=== PATIENT | male | born 1965 | race Caucasian/White ===

== ENCOUNTER 2024-12-19 12:46 | Outpatient (AMB) | payer OTHER, SELFPAY ==
--- NOTE | 2024-12-19 12:51 | MHC.PC.OV ---
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 He is on atorvastatin 20 mg daily. Requests dermatology referral for skin check. Prior PCP? - [facility] Last office visit/CPE/labs - 10/2023 Acute issue(s) - None Past Medical History - Myopia, bilat cataract, dyslipidemia, urethral stricture, chronic low back pain with ruptured L5-S1 discs, BLE neuropathy, chronic right shoulder pain, chronic bilateral knee pain, (right worst than left) Surgical History - Appendectomy, urethral stricture surgery x 4, bilat cataract surgery Family History - Dad: Carotid artery malignant tumor, alcohol abuse Social History - Nonsmoker. Does not vape. Drinks 1 hard cider once monthly. Denies recreational drug use - Has been making healthy dietary choices. Walk regularly. Generally sleep well Health maintenance - Last eye exam was 3 months ago. He will sign a release for his PCP to obtain his ophthalmology record - Last dental visit was in 08/2024 - Last Tdap was in 01/30/2017 - He was vaccinated for shingles in 01/2024 - He has never been vaccinated for pneumonia - Has not been vaccinated for the flu this season; declines vaccination - Last colonoscopy was in 2022 or 2023: benign polyps. Recommended 5 year follow up. He will obtain record for review Specialists None [facility] Medical History (Updated 12/20/24 @ 07:07 by Jefferson Guy CNP) Chronic pain of both knees Chronic right shoulder pain Neuropathic pain, leg, bilateral Chronic low back pain Urethral stricture Appendicitis Surgical History (Updated 12/19/24 @ 15:30 by Whitney Morrow MA) Hx of appendectomy Family History (System 12/19/24 @ 14:05 by Viviane Wilson) Father Alcohol abuse Mass of throat Brother Alcohol abuse High cholesterol Diabetes Social History (System 12/19/24 @ 14:05 by Viviane Wilson) Housing: House Patient Tobacco Use Status: Never used Tobacco e-Cigarette/Vaping Use: Never Used Second Hand Smoke Exposure: No service: No Current occupational status: employed 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 1. Little interest or pleasure in doing things: not at all 2. Feeling down, depressed, or hopeless: not at all 3. Trouble falling or staying asleep, or sleeping too much: not at all 4. Feeling tired or having little energy: several days 5. Poor appetite or overeating: not at all 6. Feeling bad about yourself - or that you are a failure or have let yourself or your family down: several days 7. Trouble concentrating on things, such as reading the newspaper or watching television: not at all 8. Moving or speaking so slowly that other people could have noticed. Or the opposite - being so fidgety or restless that you have been moving around a lot more than usual: not at all 9. Thoughts that you would be better off or of hurting yourself in some way: not at all Total score: 2 Depression Screening Interpretation: Negative Depression Screening Done: Yes 19553 - PHQ-9 Billing: Yes Source: Developed by Drs. Josemanuel Ellison, Lulú Lozada, Karthikeyan Trevino and colleagues, with an educational bashir from [employer]. Thrive Questionnaire Date Thrive assessed: 12/19/24 I am a: Patient What is your living situation today?: I have a steady place to live Within the past 12 months, did the food you bought not last and you didn't have the money to get more?: Never true Within the past 12 months, did you worry whether your food would run out before you got money to buy more?: Never true Do you have trouble paying for medicines?: No Do you have trouble getting transportation to medical appointments?: No Do you have trouble paying your heating and electricity bill?: No Do you have trouble taking care of your child, family member or friend?: No Do you have trouble with day-to-day activities such as bathing, preparing meals, shopping, managing finances, etc.?: No Are you currently unemployed and looking for a job?: No Are you interested in more education?: No Please select the resources that you would like help with: None Currently or been in a relationship where the following occur: No concerns reported THRIVE Score: 0 AUDIT C Alcohol Use Questionnaire (AUDIT-C) 1. How often do you have a drink containing alcohol?: Monthly or less 2. How many drinks containing alcohol do you have on a typical day when you are drinking?: 1 or 2 3. How often do you have six or more drinks on one occasion?: Never Total Score: 1 Score Reviewed/Action Taken: Yes JUSTIN-7 AMB Questionnaire JUSTIN-7 Date JUSTIN - 7 assessed: 12/19/24 Feeling nervous, anxious, or on edge: 0 = Not at all Not being able to stop or control worryin = Not at all Worrying too much about different things: 0 = Not at all Trouble relaxin = Not at all Being so restless that it is hard to sit still: 0 = Not at all Becoming easily annoyed or irritable: 0 = Not at all Feeling afraid as if something awful might happen: 0 = Not at all Total JUSTIN-7 score (0-4 normal; 5-9 mild; 10-14 moderate; 15-21 severe): 0 Source: Developed by Drs. Josemanuel Elliosn, Lulú Lozada, Karthikeyan Trevino and colleagues, with an educational bashir from [employer]. JUSTIN-7 Assessment Billing JUSTIN-7 Assessment Tool: JUSTIN-7 Assessment 45973 Review of Systems Const Details: Denies chills, Denies fatigue, Denies fever(s), Denies headache(s) and Denies weakness HEENT Denies change in vision, Denies dizziness, Denies headache(s), Denies hearing loss, Denies nasal congestion, Denies sinus pain, Denies sinus pressure and Denies sore throat Card Denies chest pain, Denies lightheadedness, Denies dyspnea and Denies other (palpitations) Resp Denies cough, Denies dyspnea and Denies wheezing GI Denies abdominal pain, Denies melena, Denies hematochezia, Denies change in bowel habits, Denies dyspepsia and Denies nausea Denies hematuria and Denies dysuria Musc Denies abnormal gait, Denies myalgias, Denies arthralgias, Denies numbness and Denies tingling Skin/Breast Denies rash, Denies unusual bruising and Denies wounds Neuro Denies abnormal gait, Denies dizziness, Denies headache(s), Denies memory loss, Denies numbness, Denies Sensory deficit (Neuro), Denies tingling and Denies weakness Psych Denies anxiety, Denies depression and Denies memory loss Endo Denies cold intolerance, Denies fatigue, Denies heat intolerance, Denies polydipsia and Denies polyuria Heriberto/Lymph Denies easy bleeding and Denies easy bruising Aller/Immun Denies wheezing Physical exam (Primary Care) Vital Signs: Last Vital Signs Temp 97.6 F 12/19/24 12:59 Pulse 64 12/19/24 12:59 Resp 16 12/19/24 12:59 BP 110/69 12/19/24 12:59 Pulse Ox 98 12/19/24 12:59 Oxygen Delivery Method Room Air 12/19/24 12:59 BMI result Body Mass Index 29.6 Tobacco/Smoking Status: Tobacco use Status Tobacco use date assessed 12/19/24 12/19/24 12:58 Patient Tobacco Use Status Never used Tobacco 12/19/24 12:58 e-Cigarette/Vaping Use Never Used 12/19/24 12:58 PHQ-9: PHQ-9 Score PHQ-9: Total score 2 12/19/24 15:30 Depression Screening Interpretation: Negative Thrive Assessment: Date of Thrive Assessment Date Thrive assessed 12/19/24 12/19/24 12:56 Currently or been in a relationship where the following occur: No concerns reported Const Other: General: no acute distress, well developed, alert and awake Nutritional Appearance: well nourished Orientation/consciousness: patient oriented x3 HENMT Head: Yes normocephalic and Yes atraumatic Ears: hearing grossly normal bilaterally and TM's normal bilaterally General nose exam: Normal external nose present and Normal nares present Mouth: Normal oral and palatal mucosa present and moist mucous membranes Teeth and gingiva: dentition normal Throat: Yes oropharynx normal Eyes Pupils: Equal, round and reactive pupils present and Pupil accommodation reflex normal EOM: EOMs intact bilaterally Neck Neck: Yes normal visual inspection, Yes no lymphadenopathy and Yes trachea midline Thyroid: Thyroid normal Carotids: no bruits Lymphatic: no lymphadenopathy noted Chest Chest palpation & inspection: normal inspection of the chest Resp Effort & Inspection: normal respiratory effort Auscultation: clear to auscultation bilaterally Cardio Rate: regular rate Rhythm: regular rhythm Heart sounds: S1 normal heart sound present, S2 normal heart sound present, no gallops, no murmurs and no rubs Bruits: no abdominal aortic bruits and no carotid bruits GI Palpation (GI): No Abdominal aortic bruit present, Soft to palpation, nontender, No hepatosplenomegaly present and No Rebound tenderness present Auscultation: normal bowel sounds General: Yes no CVA tenderness Back/Spine/Pelvis Back: no CVA tenderness Cervical Spine: cervical ROM normal and No Cervical spine tenderness Thoracic/Lumbar Spine: thoraco-lumbar ROM normal, No pain with thoraco-lumbar ROM, No thoracic spinal tenderness and No lumbar spinal tenderness Skin General: warm and dry. Normal skin color. Normal skin turgor Lesions: no lesions Rashes: no rashes Trauma: no lacerations or abrasions Wounds: no wounds Nails: normal Neuro General: patient oriented x3, gait normal and CN's II-XI intact bilaterally Cranial nerves: Yes Equal, round and reactive pupils present Cognition (Neuro): normal cognition Gait exam (Neuro): Normal gait present Motor exam (neuro): 5/5 motor strength present throughout Sensory Exam: No Sensory deficit (Neuro) Deep tendon reflexes (DTR's): Right patellar reflex intensity grade: 2+ and Left patellar reflex intensity grade: 2+ Extrem General: Yes normal to inspection, No edema and No calf tenderness Psych Appearance: grossly normal Affect: normal affect Attitude: cooperative Thought process: Normal thought process present Coding Level of Care Code New Pt Level 3 (59811) New Pt Prev Care 40-64y(07875) Diagnoses Normal physical examination, routine Z00.00 Dyslipidemia E78.5 Skin cancer screening Z12.83 Vaccine counseling Z71.85 Laboratory tests ordered as part of a complete physical exam (CPE) Z00.00 Additional Codes JUSTIN-7 Assessment Billing - JUSTIN-7 Assessment Tool: JUSTIN-7 Assessment 93620 ([id number]) PHQ-9 - 25623 - PHQ-9 Billing: Yes ([id number]) Assessment & Plan Assessment & Plan (1) Normal physical examination, routine: Code(s): Z00.00 - Encounter for general adult medical examination without abnormal findings Category: Medical Plan: No significant functional limitations noted. Continue current treatment regimen. Healthy diet and routine exercise encouraged. Perform lab work and follow-up for telehealth visit for labs review in 2-3 weeks. Return sooner with symptoms or concerns. Verbalized understanding and agreed with the treatment plan. (2) Dyslipidemia: Code(s): E78.5 - Hyperlipidemia, unspecified Category: Medical Plan: Continue current treatment regimen. Advised to limit foods high in saturated fat and avoid foods high in trans fat. Routine exercise encouraged. Will check lipid panel level and make changes as needed. Verbalized understanding and agreed with the plan. (3) Skin cancer screening: Code(s): Z12.83 - Encounter for screening for malignant neoplasm of skin Category: Medical Plan: Referred to [facility]. (4) Vaccine counseling: Code(s): Z71.85 - Encounter for immunization safety counseling Category: Medical Plan: He has not been vaccinated for pneumonia. Instructed on importance of vaccination and encouraged to get vaccinated for pneumonia. May get the vaccine from the local pharmacy. Verbalized understanding and agreed with the plan. (5) Laboratory tests ordered as part of a complete physical exam (CPE): Code(s): Z00.00 - Encounter for general adult medical examination without abnormal findings Category: Medical Plan: Fasting labs ordered as part of a complete physical exam. Advised to fast for at least 10 hours before getting labs drawn. May drink water Verbalized understanding and agreed with treatment plan. Orders: Orders Complete Blood Count Auto Diff 12/19/24 Z. - Encounter for general adult medical examination without abnormal findings TSH reflex Free T4 12/19/24 Z. - Encounter for general adult medical examination without abnormal findings UA CC w/rflx Micro + Cult 12/19/24 Z. - Encounter for general adult medical examination without abnormal findings Comprehensive [facility]. Panel Fast 12/19/24 Z. - Encounter for general adult medical examination without abnormal findings Lipid Panel 12/19/24 Z00.00 - Encounter for general adult medical examination without abnormal findings Microalbumin, Random (w Creat) 12/19/24 Z00.00 - Encounter for general adult medical examination without abnormal findings PSA, Ultra Sensitive 12/19/24 Z00. - Encounter for general adult medical examination without abnormal findings Vitamin D 25-OH Total 12/19/24 Z00.00 - Encounter for general adult medical examination without abnormal findings
[2024-12-19 12:59] VITALS: BP 110/69; PULSE 64; RESP 16; TEMP 36.4; O2SAT 98; BMI 29.6
== END 2024-12-19 13:48 | disposition home or self-care (01) ==
LOC: HO.HMCFM 12:47
PROVIDERS: PCP Nurse Practitioner Family; Visit Provider Nurse Practitioner Family
DX: Z00.00 Encounter for general adult medical examination without abnormal findings (principal); E78.5 Hyperlipidemia, unspecified; Z12.83 Encounter for screening for malignant neoplasm of skin; Z71.85 Encounter for immunization safety counseling

== ENCOUNTER → 2024-12-19 12:46 | Outpatient (BNVA) | payer OTHER, SELFPAY | PROVIDERS: Visit Provider Nurse Practitioner Family | DX: Z00.00 Encounter for general adult medical examination without abnormal findings (principal); E78.5 Hyperlipidemia, unspecified; Z71.85 Encounter for immunization safety counseling | CPT/HCPCS: 96127 ==

== ENCOUNTER 2024-12-20 07:28 | Outpatient (REF) | payer OTHER, SELFPAY ==
--- OUTSIDE RECORDS SUMMARY | 2024-12-20 07:30 | XMS_ITS | Clinical Summary ---
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 capsule 0 07/13/2015 Active Atorvastatin Calcium (LIPITOR) 20 MG tablet TAKE 1 TABLET DAILY DIRECTED. 90 0 07/13/2015 Active Sildenafil Citrate (Viagra) 100 MG tablet TAKE 1 TABLET DAILY 1 HOUR BEFORE NEEDED 1 0 01/30/2017 Active Active Problems Problem Noted Date Diagnosed Date Preop examination 06/17/2017 Erectile dysfunction 01/30/2017 Overview (08/09/2023): Impression - [id number]: Rx for Viagra 50mg. ADRs and alternatives discussed. Caution re: hypotension. Take 1 tablet 1 hour prior to activity and if tolerated can take 2 tablets prn. Intertrigo 01/30/2017 Overview (08/09/2023): Impression - [id number]: Recommend fluconazole PO and clotraimzole cream prn. Encouraged to keep the area as dry as possible. Chronic urethral stricture 01/30/2017 Overview (08/09/2023): Impression - [id number]: Referred to urology, Dr. Monica Snyder 11/17/2016 Garrett johnson 11/17/2016 Overview (08/09/2023): Impression - [id number]: Change to nystatin. Counseled re: need to use TID regularly. Keep dry. If no better in 6 weeks, refer back to [facility] for evaluation Complaints of leg weakness 11/06/2015 Overview (08/09/2023): Impression - [id number]: refer to PT Anterior tibialis tendinitis, left 11/06/2015 Overview (08/09/2023): Impression - [id number]: Ice, elevation, no recreational walking. Prescription for diclofenac sodium 75 milligrams twice a day. He is aware he needs to stop this 7 days before the surgery Hip joint stiffness 07/13/2015 Overview (08/09/2023): Impression - 13Jul2015: X-ray left hip Overweight (BMI 25.0-29.9) 04/24/2015 Vitamin D deficiency 11/03/2014 Overview (08/09/2023): Impression - [id number]: Encouraged 1000 IU Vitamin D daily in addition to multi vitamin Depression 10/03/2014 Pain in joint of left shoulder 08/01/2011 Overview (08/09/2023): Impression - 07May2015: Suspect rotator cuff tendonitis and probable tear Impression - 13Jul2015: It is up to him however I did recommend PT and issue referral Lower back pain 11/13/2010 Dyslipidemia 11/13/2010 Overview (08/09/2023): Impression - 13Jul2015: Prescription for atorvastatin 20 milligrams daily sent, recheck labs 3 months, no appointment needed Impression - [id number]: Controlled, continue current treatment. Immunizations Immunization Administration Dates Next Due Influenza (SEASONAL) - 04/13/2017 Influenza,injectable,quad,Prsrv Fr 04/13/2017 Tdap 01/30/2017,03/20/2006 Family History Medical History Relation Name Comments CAD/PVD - Early Brother Coronary Art heraclio Disease : Brother Diabetes Brother Type 2 Diabetes Mellitus : Brother Stroke Brother Stroke Syndrome : Brother Dementia Father Alzheimer Disea se : Father Lipid/Cholesterol Abnormality Other Hyperlipidemia : Family History Relation Name Status Comments Brother Father Other Social History Tobacco Use Types Packs/Day Years Used Date Smoking Tobacco: Never Assessed Comments:Smoking Status:No c urrent tobacco use Sex and Gender Information Value Date Recorded Sex Assigned at Not on file Legal Sex Male 7:30 PM EDT Gender Identity Not on file Sexual Orientation Not on file Last Filed Vital Signs Vital Sign Reading Time Taken Comments Blood Pressure 110/80 06/17/2017 1:26 PM EST LUE/Sitting LUE/Sitting Pulse 63 06/17/2017 1:26 PM EST Temperature 36.9 ??C (98.4 ??F) 06/17/2017 1 :26 PM EST Temporal Respiratory Rate 12 06/17/2017 1:26 PM EST Normal Oxygen Saturation 98% 06/17/2017 1:2 6 PM EST Inhaled Oxygen Concentration - - Weight 77.6 kg (170 lb 15.8 oz) 06/17/2017 1:26 PM EST Height 168.9 cm (5' 6.5 ) 06/17/2017 1: 26 PM EST Body Mass Index 27.18 06/17/2017 1:26 PM EST Plan of Treatment Health Maintenance Due Date Last Done Comments Pneumococcal 50+ years (1 of 1 - PCV) 2013 Zoster (Shingrix) (1 of 2) 2013 COVID-19 Vaccine (2023-2 5 season) 2024 Influenza (Season Ended) 2025 017, 04/13/2017 DTaP/Tdap/Td (3 - Td or Tdap) 01/30/2027, 03/20/2006 RSV (1 - 1-dose 75+ series) 2038 Hepatitis C Screening Completed 11/06/2015 , 11/08/2013 HPV Vaccine Aged Out No longer eligi ble based on patient's age to complete this topic Hep A Aged Out No longer eligi ble based on patient's age to complete this topic Hep B Aged Out No longer eligi ble based on patient's age to complete this topic Hib Aged Out No longer eligi ble based on patient's age to complete this topic Meningococcal ACWY Aged Out No longer eligible based on patient's age to complete this topic Zoster (Zostavax) Discontinued Procedures Procedure Name Priority Date/Time Associated Diagnosis Comments HEPATITIS C ANTIBODY W/ REFLEX TO RNA, QN, RT PCR Routine 11/06/2015 3:26 PM EDT from Last 3 Months or Most Recently Relevant to Health Maintenance Results * HEPATITIS C ANTIBODY W/ REFLEX TO RNA, QN, RT PCR (11/06/2015 3:26 PM EDT) Hepatitis C virus Ab NON-REACTI VE NON-REACT CASSANDRA PHCT CONVERSIONS Hepatitis C virus Ab Signal/Cutoff 0.05 <1.00 PHCT CONVERSIONS 11/06/2015 3:26 PM EDT Narrative PHCT CONVERSIONS - 11/07/2015 11:33 AM EDT [facility] Date/Time: [id number] [facility] Testing performed at: 1, [facility], [address] [place] [address], [address], [place], [address], Water Purifier Operator: Kyle Emanuel MD [facility] Date/Time: [id number] [facility] Results Received Date/Time: [id number] [facility] Reported Date/Time: [id number] Josemanuel Bravo MD LABORATORY Final Res ult PHCT CONVERSIONS from Last 3 Months or Most Recently Relevant to Health Maintenance Care Teams 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
[2024-12-20 11:43] LABS: Appearance Urine Clear; Color Urine Yellow; Glucose Urine UA Negative (Negative); Leukocyte Esterase Urine Negative (Negative); Nitrite Urine Negative (Negative); Urine Blood Negative (Negative); Urine Ketones Negative (Negative); Urine Protein Negative (Neg-Trace)
[2024-12-20 11:49] LABS: MANUAL DIFF FLAG NO
[2024-12-20 11:53] LABS: Basophils Absolute Auto 0.1 X10*3/uL (0.0-0.2); Eosinophils Absolute Auto 0.3 X10*3/uL (0.0-0.4); Eosinophils Percent Auto 5.2 % (0-4); Hematocrit 42.3 % (42.0-52.0); Hemoglobin 14.8 g/dl (14.0-18.0); Imm Gran Abs Auto 0.02 X10*3/uL (0.00-0.03); Imm Gran Pct Auto 0.3 % (0.0-0.4); Lymphocytes Absolute Auto 1.7 X10*3/uL (1.2-4.9); Lymphocytes Percent Auto 27.7 % (20-40); Mean Corpuscular Hemoglobin 31.8 pg (27.0-33.0); Mean Corpuscular Volume 90.8 fL (80.0-98.0); Mean Platelet Volume 10.1 fL (9.4-12.4); Monocytes Absolute Auto 0.6 X10*3/uL (0.1-1.2); Monocytes Percent Auto 9.2 % (2-11); Neutrophils Absolute Auto 3.5 x10*3/uL (2.0-8.3); Neutrophils Percent Auto 56.6 % (45-73); Platelet Count 234 X10*3/uL (160-400); Red Blood Count 4.66 X10*6/uL (4.60-5.80); Red Cell Distribution Width 12.1 % (11.0-16.0); White Blood Count 6.2 X10*3/uL (4.8-10.8)
[2024-12-20 12:17] LABS: Alanine Aminotransferase 39 U/L (0-40); Albumin Level 4.4 g/dL (3.5-5.0); Alkaline Phosphatase 70 U/L (39-117); Anion Gap 10 (12-20); Aspartate Amino Transferase 30 U/L (5-37); Bilirubin Total 0.8 mg/dL (0.0-1.0); Blood Urea Nitrogen 12 mg/dL (9-16); Calcium 9.4 mg/dL (8.4-10.2); Carbon Dioxide 28 mmol/L (22-29); Chloride 107 mmol/L (96-108); Cholesterol 118 mg/dL (<200); Estimated Glomerular Filt Rate > 60; Glucose Fasting 94 mg/dL (60-99); HDL Cholesterol 34 mg/dL (>40); LDL Cholesterol Calculated 61 mg/dL (<100); Potassium 4.2 mmol/L (3.3-5.1); Sodium 141 mmol/L (135-145); Total Protein 6.8 g/dL (6.5-8.0); Triglycerides 115 mg/dL (<150)
[2024-12-20 12:22] LABS: TSH reflex Free T4 1.66 uIU/mL (0.32-4.0); Vitamin D 25-OH Total 52.4 ng/mL (>30)
[2024-12-20 12:38] LABS: Microalbumin Urine < 5.0 mg/L
[2024-12-23 21:03] LABS: PSA, Ultra Sensitive 2.18 ng/mL
== END 2024-12-20 07:29 | disposition home or self-care (01) ==
LOC: HO.WFDLDS 07:28
PROVIDERS: Visit Provider Nurse Practitioner Family
DX: Z00.00 Encounter for general adult medical examination without abnormal findings (principal); Z12.5 Encounter for screening for malignant neoplasm of prostate; Z13.6 Encounter for screening for cardiovascular disorders
CPT/HCPCS: 36415; 80053; 80061; 81003; 82043; 82306; 82570; 84153; 84443; 85025